=== PATIENT | male | born 1955 | race Caucasian/White ===

== ENCOUNTER 2017-05-15 15:06 | Emergency (ER) | payer BC ==
[2017-05-15 15:24] LABS: Absolute Neutrophil 11.2 K/uL (1.8-8.0); Eosinophils % 0.6 % (0-4.4); Hematocrit 42.5 % (39.6-49.0); Lymphocytes % 14.1 % (15.3-44.8); MCH 29.9 pg (27.0-35.0); MCV 88.8 fL (80-100); MPV 6.9 fL (7.6-11.3); Monocytes % 6.9 % (3.3-12.3); RBC Red Blood Cell Count 4.79 M/uL (4.33-5.43)
[2017-05-15 15:37] LABS: Potassium 3.8 mEq/L (3.6-5.0)
--- NOTE | 2017-05-15 16:34 | RAD REPORT ---
EXAM DESCRIPTION: CT - Head C Spine Cap Uzair Patino - 05/15/2017 4:07 pm CLINICAL HISTORY: Fall from ladder, head, neck, chest and abdomen pain COMPARISON: None. TECHNIQUE: Axial [address] head images were obtained. Axial [address] cervical spine images were obtaine d with sagittal and coronal reconstruction images reviewed. During dynamic enhancement of 100mL non-i onic contrast, axial 5 mm images of the chest, abdomen and pelvis were obtained. All CT scans are performed using dose optimization technique as appropriate and may include automated exposure control or mA/KV adjustment according to patient size. FINDINGS: No intracranial hemorrhage, mass or edema. No midline shift or abnormal fluid collection. Minimal atrophy and chronic ischemic change. Arterial tree calcifications are present. Ventricles are normal. Mastoid air cells and paranasal sinuses are clear. No skull fracture. CT cervical spine imaging shows normal height. Normal alignment of the vertebrae. No significant disc space narrowing. Endplate spurring changes are seen at several levels. No significant bony foraminal encroachment seen. No paraspinal mass or hematoma seen. Central canal detail is inherently limited. Concerns for traumatic disc herniation or traumatic cord injury can be further addressed with MR imag ing. Carotid bulb calcifications are present. CT chest shows no pneumothorax, pulmonary contusion or pleural fluid collection. No mediastinal hemat tabitha and the aorta and pulmonary arteries are unremarkable. No chest will mass or abnormal axillary fi nding. No displaced rib fracture or other significant bony finding. CT abdomen and pelvis show no injury to solid abdominal viscera. Gallbladder and biliary tree are unr emarkable. No bowel injury or significant finding. No free air, free fluid or abnormal stranding. No urinary bladder abnormality. No acute compression fracture in the thoracic or lumbar vertebrae. L5 pars interarticularis defects a re present. There is minimal L5 subluxation. This is a chronic finding. Degenerative spurring changes are present. IMPRESSION: No hemorrhage, edema or acute CT Head finding. No skull fracture. Mild degenerative change with no acute cervical spine finding. No acute traumatic injury to the chest. No suspicious finding. No significant CT Abdomen and Pelvis finding. No significant bony findings noted. L5 pars defects are present believed to be chronic.
[2017-05-15] MEDS ORDERED: TETANUS & DIPHTHERIA TOX,ADULT 0.5 ML VIAL ONE (17:19)
--- NOTE | 2017-05-15 17:25 | EDPHYS ---
Physician Documentation [facility] Name: Darren Summers Jr Age: 61 yrs Sex: Male : 1955 Arrival Date: 05/15/2017 Time: 15:08 Bed 4 Private MD: ED Physician Shahzad Damon HPI: 05/15 15:50 This 61 yrs old Male presents to ER via EMS with complaints of Fall Injury. rn 15:50 Details of fall: The patient fell from a height, from a ladder, approximately 12 feet. rn Onset: The symptoms/episode began/occurred just prior to arrival. Associated injuries: The patient sustained injury to the head. Severity of symptoms: At their worst the symptoms were mild, in the emergency department the symptoms have improved. The patient has not experienced similar symptoms in the past. Fall from ladder, 12 ft tall, doesn't remember all events, unknown if LOC, was ambulatory at scene, denies focal pain, reports chronic back pain issues. . Historical: - Allergies: 15:14 No Known Allergies; sg - PMHx: 15:14 Back pain; sg - PSHx: 15:14 Back Surgery; sg - Immunization history:: Adult Immunizations unknown, Last tetanus immunization: unknown. - Social history:: Smoking status: Patient uses tobacco products, denies chronic smoking, but will smoke occasionally. - Family history:: not pertinent. - Hospitalizations: : No recent hospitalization is reported. ROS: 15:50 Constitutional: Negative for fever, chills, and weight loss, Eyes: Negative for injury, rn pain, redness, and discharge, Neck: Negative for injury, pain, and swelling, Cardiovascular: Negative for chest pain, palpitations, and edema, Respiratory: Negative for shortness of breath, cough, wheezing, and pleuritic chest pain, Abdomen/GI: Negative for abdominal pain, nausea, vomiting, diarrhea, and constipation, Back: + chronic back pain MS/Extremity: Negative for injury and deformity, Skin: Abrasions to face/scalp/hands Neuro: Negative for headache, weakness, numbness, tingling, and seizure. Exam: 15:50 Constitutional: This is a well developed, well nourished patient who is awake, alert, rn and in no acute distress. Head/Face: Normocephalic, abrasions to chin and right scalp along hairline, no lacerations, + hematoma over right eyebrow. Eyes: Pupils equal round and reactive to light, extra-ocular motions intact. Neck: In ccollar, no midline tenderness, no crepitus, trachea midline Chest/axilla: Normal chest wall appearance and motion. Nontender with no deformity. No lesions are appreciated. Cardiovascular: Regular rate and rhythm with a normal S1 and S2. No gallops, murmurs, or rubs. Normal PMI, no JVD. No pulse deficits. Respiratory: Lungs have equal breath sounds bilaterally, clear to auscultation and percussion. No rales, rhonchi or wheezes noted. No increased work of breathing, no retractions or nasal flaring. Abdomen/GI: Soft, non-tender, with normal bowel sounds. No distension or tympany. No guarding or rebound. No evidence of tenderness throughout. Back: No spinal tenderness. MS/ Extremity: Pulses equal, no cyanosis. Neurovascular intact. Full, normal range of motion. Equal circumference. Numerous small abrasions over bilateral hands. No lacerations. Neuro: Awake and alert, GCS 15, oriented to person, place, time, and situation. Cranial nerves II-XII grossly intact. Motor strength 5/5 in all extremities. Sensory grossly intact. Cerebellar exam normal. Normal gait. Vital Signs: 15:12 BP 159 / 86; Pulse 97; Resp 18; Temp 98.3; Pulse Ox 97% on R/A; Pain 7/10; sg 16:12 BP 142 / 78; Pulse 87; Resp 16 S; Pulse Ox 96% on R/A; sg 17:08 BP 146 / 82; Pulse 88; Resp 17; Pulse Ox 97% on R/A; mh5 MDM: 15:08 Patient medically screened. rn 17:23 Differential diagnosis: abrasion, closed head injury, contusion, fracture, sprain, rn strain. Data reviewed: vital signs, nurses notes, lab test result(s), radiologic studies, CT scan, and as a result, I will discharge patient. Counseling: I had a detailed discussion with the patient and/or guardian regarding: the historical points, exam findings, and any diagnostic results supporting the discharge/admit diagnosis, lab results, radiology results, the need for outpatient follow up, to return to the emergency department if symptoms worsen or persist or if there are any questions or concerns that arise at home. Special discussion: Based on the patient's history, exam and DX evaluation, there is no indication for emergent intervention or inpatient TX. It is understood by the patient/guardian that if the SXs persist or worsen they need to return immediately for re-evaluation. I discussed with the patient/guardian in detail that at this point there is no indication for admission to the hospital. It is understood, however, that if the symptoms persist or worsen the patient needs to return immediately for re-evaluation. 17:33 ED course: Pt ambulatory, feels well, will dc home. . rn 05/15 15:09 Order name: Basic Metabolic Panel; Complete Time: 16:18 rn 05/15 15:09 Order name: CBC with Diff; Complete Time: 16:18 rn 05/15 15:09 Order name: CT Traumagram (Head C Spine CAP W Con); Complete Time: 16:35 rn 05/15 15:09 Order name: Labs collected and sent; Complete Time: 15:17 rn Administered Medications: 17:22 Drug: Tetanus-Diphtheria Toxoid Adult 0.5 ml {Online Retailer: [employer]. Exp: sg 09/07/2019. Lot #: [id number]. } Route: IM; Site: left deltoid; Disposition: 05/15/17 17:24 Discharged to Home. Impression: Superficial injury of head, Concussion, Abrasion of hand. - Condition is Stable. - Discharge Instructions: Concussion, Adult, Head Injury, Adult, Post-Concussion Syndrome. - Medication Reconciliation Form, Thank You Letter, Antibiotic Education, Prescription Opioid Use form. - Follow up: Private Physician; When: As needed; Reason: Recheck today's complaints, Re-evaluation by your physician. - Problem is new. - Symptoms have improved. Signatures: Dispatcher [employer] River Gardner RN RN sg Williams, Irene, RN RN iw Nieto, Roman, MD MD internet marketing analyst: (The following items were deleted from the chart) 15:51 15:09 Creatinine for Radiology+C.LAB.BRZ ordered. [facility]
--- NOTE | 2017-05-15 17:25 | ER ---
Nurse's Notes [facility] Name: Darren Summers Jr Age: 61 yrs Sex: Male : 1955 Arrival Date: 05/15/2017 Time: 15:08 Bed 4 Private MD: Diagnosis: Superficial injury of head;Concussion;Abrasion of hand Presentation: 05/15 15:09 Presenting complaint: EMS states: pt was on a ladder, approx 12 ft up, while using a sg saw, the pts helper reports the saw became stuck and made the pt fall from atop the ladder, landing on his back hitting his head, positive LOC, pt remembers events prior to the fall, but not after regaining consciousness, reports remembering when the EMS arrived to help him. EMS reports pt was walking at the scene, pt reports he does not remember walking. pt has a hx of chronic back pain and back sx. Transition of care: patient was not received from another setting of care. Onset of symptoms was May 15, 2017. Care prior to arrival: Cervical collar in place. Placed on backboard. 15:09 Method Of Arrival: EMS: [facility] sg 15:09 Acuity: LEEANNE 2 sg Triage Assessment: 15:12 General: Appears in no apparent distress. comfortable, well groomed, well developed, sg well nourished, Behavior is calm, cooperative, appropriate for age. Pain: Complains of pain in back of head and back Quality of pain is described as aching, sore. Neuro: Level of Consciousness is awake, alert, obeys commands, Oriented to person, place, time, situation, Blade Boner are equal bilaterally Moves all extremities. Gait is steady, Speech is normal, Facial symmetry appears normal, Pupils are PERRLA. Cardiovascular: Heart tones S1 S2 present Capillary refill is brisk in bilateral fingers Patient's skin is warm and dry. Chest pain is denied. Respiratory: Airway is patent Respiratory effort is even, unlabored, Respiratory pattern is regular, symmetrical, Breath sounds are clear Denies cough, shortness of breath labored breathing, pain with respiration. GI: Abdomen is round non-distended, Bowel sounds present X 4 quads. Patient currently denies nausea, pain, vomiting. : No signs and/or symptoms were reported regarding the genitourinary system. Derm: Skin is pink, warm \T\ dry. Derm: Musculoskeletal: No deficits noted. Injury Description: Abrasion sustained to face, right hand, right arm and left arm is bleeding, dirty, was sustained 30-60 minutes ago. Historical: - Allergies: 15:14 No Known Allergies; sg - PMHx: 15:14 Back pain; sg - PSHx: 15:14 Back Surgery; sg - Immunization history:: Adult Immunizations unknown, Last tetanus immunization: unknown. - Social history:: Smoking status: Patient uses tobacco products, denies chronic smoking, but will smoke occasionally. - Family history:: not pertinent. - Hospitalizations: : No recent hospitalization is reported. Screenin:30 Abuse screen: Denies threats or abuse. Denies injuries from another. Nutritional sg screening: No deficits noted. Tuberculosis screening: No symptoms or risk factors identified. Never had TB. Fall Risk None identified. Assessment: 16:12 Reassessment: Patient appears in no apparent distress at this time. Patient and/or sg family updated on plan of care and expected duration. Pain level reassessed. Patient is alert, oriented x 3, equal unlabored respirations, skin warm/dry/pink. General:. 17:12 Reassessment: Patient appears in no apparent distress at this time. Patient and/or sg family updated on plan of care and expected duration. Pain level reassessed. Patient is alert, oriented x 3, equal unlabored respirations, skin warm/dry/pink. 17:30 Reassessment: Patient appears in no apparent distress at this time. Patient and/or sg family updated on plan of care and expected duration. Pain level reassessed. Patient is alert, oriented x 3, equal unlabored respirations, skin warm/dry/pink. at bedside at this time, updating pt on results and poc, dc instruction provided by provider, pt at bedside, pt to be dc'd to home. Vital Signs: 15:12 BP 159 / 86; Pulse 97; Resp 18; Temp 98.3; Pulse Ox 97% on R/A; Pain 7/10; sg 16:12 BP 142 / 78; Pulse 87; Resp 16 S; Pulse Ox 96% on R/A; sg 17:08 BP 146 / 82; Pulse 88; Resp 17; Pulse Ox 97% on R/A; mh5 ED Course: 15:08 Patient arrived in ED. rn 15:08 Shahzad Damon MD is Attending Physician. rn 15:09 River Dowell RN is Primary Nurse. 15:12 Triage completed. 15:12 Arm band placed on. sg 15:12 Patient has correct armband on for positive identification. Bed in low position. Call sg light in reach. Side rails up X2. residential monitor on. Pulse ox on. NIBP on. Warm blanket given. Verbal reassurance given. Head of bed lowered. 15:17 Initial lab(s) drawn, by me, sent to lab. Inserted saline lock: 18 gauge in right iw antecubital area, using aseptic technique. Blood collected. 15:[address] via stretcher. 16:07 CT Traumagram (Head C Spine CAP W Con) In Process Unspecified. EDMS 17:30 No provider procedures requiring assistance completed. IV discontinued, intact, sg bleeding controlled, No redness/swelling at site. Pressure dressing applied. Administered Medications: 17:22 Drug: Tetanus-Diphtheria Toxoid Adult 0.5 ml {Fire Truck Driver: [employer]. Exp: 09/07/2019. Lot #: [id number]. } Route: IM; Site: left deltoid; Outcome: 17:24 Discharge ordered by MD. rn 17:30 Discharged to home ambulatory, with family. 17:30 Condition: good 17:30 Discharge instructions given to patient, Instructed on discharge instructions, follow up and referral plans. no driving heavy equipment, safety practices, wound care, post concussion care Demonstrated understanding of instructions, follow-up care, wound care. 17:34 Patient left the ED. Signatures: Dispatcher [employer] [facility] River Dowell RN RN Kim Arellano RN RN Shahzad Damon MD MD rn Warren, Shannon sw Martinez, Maria [facility] Corrections: (The following items were deleted from the chart) 17:47 17:30 Discharge instructions given to patient, Instructed on discharge instructions, sg follow up and referral plans. no driving heavy equipment, safety practices, post concussion care Demonstrated understanding of instructions, follow-up care, sg
== END 2017-05-15 17:34 | disposition home or self-care (01) ==
LOC: ER 15:06
DX: S06.0X0A Concussion without loss of consciousness, initial encounter (principal); S60.519A Abrasion of unspecified hand, initial encounter; W11.XXXA Fall on and from ladder, initial encounter; Y93.9 Activity, unspecified; Y92.9 Unspecified place or not applicable; Z23 Encounter for immunization; Z72.0 Tobacco use
CPT/HCPCS: 36415; 70450; 71260; 72125; 74177; 80048; 85025; 90714; 99285; Q9967